=== PATIENT | male | born 1980 | race Caucasian/White ===

== ENCOUNTER → 2022-01-12 | Day surgery (SDC) | payer OTHER ==
[2022-01-11 10:22] VITALS: BMI 32.7
[~2022-01-12] MED LIST: LACTATED RINGERS 1,000 ML IV ONE; LACTATED RINGERS 1,000 ML IV SCH; LIDOCAINE 2% INJ 20 MG/ML (2 ML VIAL) ONE; PROPOFOL 10 MG/ML 20 ML VIAL IV ONE
[2022-01-12 07:57] LABS: Glucose,Whole Blood 88 mg/dL (70-110)
[2022-01-12 08:00] VITALS: TEMP 97.5
--- NOTE | 2022-01-12 08:58 | P.PCN ---
Date of Procedure: 01/12/22 Procedure(s) Performed: Brief history: Patient is a pleasant 41-year-old white male scheduled for an elective upper endoscopy as well as colonoscopy as a part of evaluation of GERD and intermittent rectal bleeding for the last several months duration. Procedure performed: Esophagogastroduodenoscopy with biopsy Colonoscopy Preoperative diagnosis: GERD Intermittent rectal bleeding [place] [facility] [place]: After informed consent was obtained from the patient was brought into the endoscopy unit and IV sedation was administered by anesthesia under continuous monitoring. Initially upper endoscopy was done. The Olympus GF 160 video endoscope was inserted inserted into the mouth and esophagus intubated without any difficulty and was gradually advanced into the stomach and duodenum and carefully examined. The bulb and second part of the duodenum appeared normal. The scope was then withdrawn into the stomach adequately insufflated with air and upon careful examination the antrum had mild antral gastritis and biopsies were done from this area. Mucosa of the body, cardia and fundus appeared normal. The scope was then withdrawn into the esophagus. The GE junction was located at 40 cm to the incisors. There was a moderate size hiatal hernia noted with the diaphragmatic impression at 45 cm from the incisors. The GE junction appeared regular with no erythema erosions or ulcerations. Rest of the esophagus appeared normal. Patient tolerated the procedure well. At this time the patient continued to remain sedation. Initial digital rectal examination was normal. Olympus CF 160 video colonoscope was then inserted into the rectum and gradually advanced to the cecum without any difficulty. Careful examination was performed as the scope was gradually being withdrawn. The prep was poor in some areas of the colon.. The cecum, ascending colon, transverse colon, descending colon, sigmoid colon and rectum appeared normal. Retroflexion was performed in the rectum and small internal hemorrhoids were noted. Patient tolerated the procedure well. Impression: 1. Upper endoscopy revealed mild antral gastritis and moderate size hiatal hernia but no evidence of esophagitis or Gaviria's esophagus 2. Colonoscopy was within normal limits with no evidence of colorectal neoplasia and small internal hemorrhoids. Recommendations: Findings of this examination were discussed with the patient as well as his family. He was advised to follow with the biopsy results. In the meantime he will continue with omeprazole 20 mg daily and follow antireflux measures and recommend repeat screening colonoscopy in 10 years.
[2022-01-12 09:30] VITALS: BP 134/70; PULSE 73; RESP 16
== END ==
LOC: ORWHC2ENDO 07:19
PROVIDERS: ATTEND Internal Medicine Gastroenterology
DX: R10.13 Epigastric pain (principal); K62.5 Hemorrhage of anus and rectum; K29.50 Unspecified chronic gastritis without bleeding; K44.9 Diaphragmatic hernia without obstruction or gangrene; K64.8 Other hemorrhoids; I10 Essential (primary) hypertension; E16.2 Hypoglycemia, unspecified; F43.10 Post-traumatic stress disorder, unspecified; Z79.899 Other long term (current) drug therapy; Z88.0 Allergy status to penicillin
CPT/HCPCS: 88305; 45378; 43239; J2704; J2001